=== PATIENT | male | born 1960 | race Caucasian/White ===

== ENCOUNTER 2020-10-12 13:45 | Inpatient (IN) | payer MEDICAID ==
--- NOTE | 2020-10-12 14:09 | ED Physician Documentation ---
PD HPI LOWER EXT INJURY - Stated complaint Stated Complaint: GLF,LT HIP,LEG PX - Chief complaint Chief Complaint: Trauma Ext - History obtained from History obtained from: Patient - History of Present Illness PD HPI LOW EXT INJURY LOCATION: Left, Hip Type of injury: Fall Where injury occurred: Home Timing - onset: Today Timing - duration: Minutes Timing - details: Abrupt onset, Still present Improved by: Rest, Immobilization Worsened by: Moving, Palpating Associated symptoms: No: Weakness, Numbness, Tingling, Swelling, Discolored Contributing factors: No: Anticoagulated Similar symptoms before: Has not had sx before Recently seen: Not recently seen - Additional information Additional information: Previously well 59-year-old male was in his kitchen today preparing food when he slipped on something on the floor his legs came out from underneath him and he landed on his left side. He heard a crack when he landed and he is not able to bear weight on his left leg with pain in the hip. He notes that his leg will fall off laterally if unsupported and he has maximal pain when he attempts to bear any weight or to move the leg around. His brother helped him out to the car and he was brought into the emergency department in a wheelchair. Review of Systems Constitutional: denies: Fever Eyes: denies: Decreased vision Ears: denies: Ear pain Nose: denies: Congestion Throat: denies: Sore throat Cardiac: denies: Chest pain / pressure, Palpitations Respiratory: denies: Dyspnea, Cough GI: denies: Abdominal Pain, Nausea, Vomiting, Constipation, Diarrhea : denies: Dysuria, Frequency Skin: denies: Rash Musculoskeletal: denies: Neck pain, Back pain, Extremity pain Neurologic: denies: Generalized weakness, Focal weakness, Numbness PD PAST MEDICAL HISTORY - Allergies Allergies/Adverse Reactions: Allergies Allergy/AdvReac Type Severity Reaction Status Date / Time No Known Drug Allergies Allergy Verified 10/12/20 13:48 PD ED PE NORMAL - Vitals Vital signs reviewed: Yes (hypertensive ) - General General: Alert and oriented X 3, No acute distress, Well developed/nourished - HEENT HEENT: PERRL, EOMI, Other (to the left scalp is an area of tenderness without crepitance or step off over the parietal/occipital area. ) - Neck Neck: Supple, no meningeal sign, No bony TTP - Cardiac Cardiac: RRR, No murmur - Respiratory Respiratory: No respiratory distress, Clear bilaterally - Abdomen Abdomen: Normal bowel sounds, Soft, Non tender, Non distended, No organomegaly - Back Back: No CVA TTP, No spinal TTP - Derm Derm: Normal color, Warm and dry, No rash - Extremities Extremities: No deformity, No edema, Other (There is tenderness to the pubic symphysis on the left and not to the lateral aspect of the trochanter. There is no shortening to the leg but there does appear to be external rotation. The foot will fall to the side if the leg is placed straight. ) - Neuro Neuro: Alert and oriented X 3, ear specialist 2-12 intact, No motor deficit, No sensory deficit, Normal speech Eye Opening: Spontaneous Motor: Obeys Commands Verbal: Oriented GCS Score: 15 - Psych Psych: Normal mood, Normal affect Results - Vitals Vitals: Vital Signs - 24 hr 10/12/20 13:48 Temperature 36.7 C Heart Rate 100 Respiratory 16 Rate Blood Pressure 137/89 H O2 Saturation 98 - Labs Labs: Laboratory Tests 10/12/20 10/12/20 10/12/20 15:05 15:05 15:15 WBC 14.5 H RBC 5.09 Hgb 16.0 Hct 46.6 MCV 91.6 MCH 31.4 H MCHC 34.3 RDW 13.3 Plt Count 192 MPV 11.1 Neut # (Auto) 12.4 H Lymph # (Auto) 1.0 L Rice # (Auto) 1.0 Eos # (Auto) 0.0 Baso # (Auto) 0.1 Absolute Nucleated RBC 0.00 Nucleated RBC % 0.0 Sodium 136 Potassium 3.8 Chloride 100 L Carbon Dioxide 23 Anion Gap 13.0 BUN 15 Creatinine 1.2 Estimated GFR (MDRD) 62 L Glucose 99 Calcium 8.8 Total Bilirubin 1.0 AST 23 ALT 16 Alkaline Phosphatase 58 Total Protein 7.6 Albumin 4.2 Globulin 3.4 Albumin/Globulin Ratio 1.2 Lipase 27 Nasal Adenovirus (PCR) NOT DETECTED Nasal B. parapertussis DNA (PCR) NOT DETECTED Nasal Coronavir 229E PCR NOT DETECTED Nasal Coronavir HKU1 PCR NOT DETECTED Nasal Coronavir NL63 PCR NOT DETECTED Nasal Coronavir OC43 PCR NOT DETECTED Nasal Enterovir/Rhinovir PCR NOT DETECTED Nasal Influenza B PCR NOT DETECTED Nasal Influenza A PCR NOT DETECTED Nasal Parainfluen 1 PCR NOT DETECTED Nasal Parainfluen 2 PCR NOT DETECTED Nasal Parainfluen 3 PCR NOT DETECTED Nasal Parainfluen 4 PCR NOT DETECTED Nasal RSV (PCR) NOT DETECTED Nasal B.pertussis DNA PCR NOT DETECTED Nasal C.pneumoniae (PCR) NOT DETECTED Ponce Human Metapneumo PCR NOT DETECTED Nasal M.pneumoniae (PCR) NOT DETECTED Nasal SARS-CoV-2 (PCR) NOT DETECTED - Rads (name of study) hip Radiology: Prelim report reviewed (Impression: Likely subcapital left femoral neck fracture, yet is not well seen. Please consider a dedicated CT for further evaluation.), EMP read indepedently, See rad report CT hip Radiology: Prelim report reviewed (Impression: Moderately displaced, impacted, comminuted subcapital left femoral neck fracture. No associated this location can be seen. No additional fractures.), EMP read indepedently, See rad report PD MEDICAL DECISION MAKING - ED course Complexity details: reviewed results, re-evaluated patient, considered differential, d/w patient ED course: 59 y/o male with a GLF and pain in the left hip is unable to bear weight after a fall. Plain films reveal what appears to be a femoral neck fracture and this is confirmed with CT scanning. Dr. Aguiar is consulted in the case and recommends admission to the hospitalist for surgery tomorrow. Departure - Departure Disposition: [facility] DC/Xfer Clinical Impression: Femoral neck fracture Qualifiers: Encounter type: initial encounter Fracture type: closed Laterality: left Qualified Code(s): S72.002A - Fracture of unspecified part of neck of left femur, initial encounter for closed fracture Condition: Stable Discharge Date/Time: 10/12/20 16:59
--- NOTE | 2020-10-12 14:31 | XRAY Report ---
PROCEDURE: Hip w/Pelvis 2-3V LT INDICATIONS: fall hip pain TECHNIQUE: AP pelvis with lateral view(s) of the bilateral hip(s). COMPARISON: None. FINDINGS: Bones: There is suspicion for left subcapital femoral neck fracture. No dislocations. Pelvic ring appears intact. No suspicious bony lesions. Soft tissues: The visualized bowel gas pattern is normal. No suspicious soft tissue calcifications. IMPRESSION: Likely subcapital left femoral neck fracture, yet this is not well seen. Please consider a dedicated CT for further evaluation. Reviewed by: Minh Rouse MD on 10/12/2020 1:30 PM [facility] Approved by: Minh Rouse MD on 10/12/2020 1:30 PM [facility] Station ID: [id number]
--- NOTE | 2020-10-12 15:32 | CT Report ---
PROCEDURE: LOWER EXTREMITY WO - LT INDICATIONS: femoral neck fracture TECHNIQUE: Noncontrast 3 mm axial sections acquired of the left hip, with coronal and sagittal reformats. COMPARISON: Correlation is made with the accompanying hip plain film, 10/12/2020 FINDINGS: Image quality: Excellent. Bones: There is a moderately displaced, comminuted, impacted fracture of the subcapital left femoral neck. This fracture is much better displayed on the current CT than on the prior plain film study. There is no associated dislocation. No fractures of the bones of the pelvis can be seen. No suspiciou s lytic or blastic lesions are seen. Age-appropriate degenerative changes are seen. Soft tissues: Associated mild soft tissue swelling can be seen surrounding the fracture. There is a moderately sized fat-containing left inguinal hernia seen. No bladder wall thickening is s een. No free air or significant free intraperitoneal fluid can be seen. No enlarged lymph nodes are s een. Diverticulosis can be seen, without esthela findings of active diverticulitis. IMPRESSION: Moderately displaced, impacted, comminuted subcapital left femoral neck fracture. No associated dislocation can be seen. No additional fractures. Incidental note is made of: Diverticulosis can be seen, without esthela findings of active diverticulitis. Fat-containing left inguinal hernia Reviewed by: Minh Rouse MD on 10/12/2020 2:31 PM [place] Approved by: Minh Rouse MD on 10/12/2020 2:31 PM [facility] Station ID: [id number]
[2020-10-12 15:35] LABS: BASOPHILS # (AUTO) 0.1 10^3/uL (0.0-0.1); BASOPHILS % (AUTO) 0.3 %; EOSINOPHILS % (AUTO) 0.1 %; LYMPHOCYTES % (AUTO) 6.6 %; MEAN CORPUSCULAR HEMOGLOBIN 31.4 pg (27.0-31.0); MEAN CORPUSCULAR HGB CONC 34.3 g/dL (32.0-36.0); MEAN CORPUSCULAR VOLUME 91.6 fL (80.0-94.0); MEAN PLATELET VOLUME 11.1 fL (7.4-11.4); NEUTROPHILS # (AUTO) 12.4 10^3/uL (1.5-6.6); NEUTROPHILS % (AUTO) 85.4 %; PLT - PLATELET COUNT 192 10^3/uL (130-450); RED BLOOD COUNT 5.09 10^6/uL (4.70-6.10); RED CELL DISTRIBUTION WIDTH 13.3 % (12.0-15.0); WHITE BLOOD COUNT 14.5 x10^3/uL (4.8-10.8)
[2020-10-12 15:49] LABS: ALBUMIN 4.2 g/dL (3.2-5.5); ALBUMIN/GLOBULIN RATIO 1.2 (1.0-2.2); CALCIUM 8.8 mg/dL (8.5-10.3); CREATININE 1.2 mg/dL (0.6-1.2); TOTAL PROTEIN 7.6 g/dL (6.7-8.2)
[2020-10-12] MEDS ORDERED: ONDANSETRON 4 MG/2 ML VIAL IVP PRN (15:50)
[2020-10-12] MEDS ORDERED: ONDANSETRON ODT 4 MG TABLET TL PRN (15:50)
[2020-10-12] MEDS ORDERED: HYDROmorphone 1 MG/ML CARPUJECT IVP STA (16:03)
[2020-10-12] MEDS ORDERED: ONDANSETRON 4 MG/2 ML VIAL IVP STA (16:03)
--- NOTE | 2020-10-12 16:12 | XRAY Report ---
PROCEDURE: Chest 1 View X-Ray INDICATIONS: Preop. Leukocytosis. TECHNIQUE: One view of the chest was acquired. COMPARISON: None FINDINGS: Surgical changes and devices: None. Lungs and pleura: No pleural effusions or pneumothorax. Lungs are clear. Mediastinum: Mediastinal contours appear normal. Heart size is normal. Bones and chest wall: No suspicious bony lesions. Overlying soft tissues appear unremarkable. IMPRESSION: No evidence acute pulmonary process. Reviewed by: Roel Napoles MD on 10/12/2020 4:10 PM PST Approved by: Roel Napoles MD on 10/12/2020 4:10 PM PST Station ID: [id number]
[2020-10-12 16:50] LABS: C. PNEUMONIAE- RESP PCR PANEL NOT DETECTED
[2020-10-12] MEDS ORDERED: ceFAZolin 2 GM in SODIUM CHLORIDE 0.9% 100ML 100 ML IV SCH (17:00)
--- NOTE | 2020-10-12 17:05 | CONSULTATION NOTE ---
DATE OF SERVICE: 10/05/2020 Physician: Trevor Aguiar MD REFERRING PHYSICIAN: Juan Li MD, of the Emergency Room Department. CHIEF COMPLAINT: "My left hip hurts." HISTORY OF PRESENT ILLNESS: Patient is a 59-year-old active male who apparently slipped on the kitchen floor this afternoon and fell onto the point of his left hip. Noted immediate pain and no significant deformity in the leg. Was unable to stand or weight bear due to pain. Was eventually taken by ambulance to the Emergency Room here at [facility], where clinical examinatio n and x-rays plus CT scan revealed a mildly angulated, minimally shortened, left subcapital hip fract ure. No other associated injuries noted. No nausea, vomiting or loss of consciousness. No prior hi p fractures. PHYSICAL EXAM: Patient's left leg was examined. He has some anterior groin tenderness on the left s maribel. Pain with hip rotation noted. The leg was minimally shortened today on inspection. Moves his toes and ankles satisfactory on command. Sensation appeared to be intact throughout. Good capillary filling noted in the digits. Review of x-rays and CT scan taken of the left hip shows a mildly angulated, minimally shortened, lef t subcapital hip fracture. ASSESSMENT: Closed, minimally displaced left subcapital hip fracture - in an otherwise very healthy and active male. PLAN: Treatment options were explained to the patient. He has opted for a closed reduction and mult iple cannulated screw fixation of his hip fracture. He is aware that there may go on to either delay ed or nonunion of his fracture or even an avascular necrosis of his femoral head due to the injury an d the often tenuous circulation to the hip fractures at this level. Other complications such as woun d infections, blood loss, nerve damage, etc., were explained to him. After answering all his questio ns, he wishes to proceed with the surgery as outlined. He does not want to have a hip hemiarthroplas ty performed if at all possible. Patient's leg was marked. Consent signed. We will tentatively ele n on proceeding tomorrow morning for a closed reduction and multiple cannulated screw fixation of his fracture. TD: 10/12/2020 16:53
--- NOTE | 2020-10-12 17:19 | HISTORY & PHYSICAL EXAMINATION ---
Chief Complaint - Chief Complaint Chief Complaint: Fall and left hip pain History of Present Illness - Admitted From Admitted From:: Home - History Obtained From Records Reviewed: Yes History obtained from: Patient, ER Physician, EMR - History of Present Illness HPI Comment/Other: This is a pleasant 59-year-old male with a past medical history significant for motor arthritis who presents today after falling at home and complaining of left hip pain. He states he was making Thanksgiving dinner when he attempted to put on some entertainment by sliding across the kitchen floor when he slipped and fell up in the air and on his left hip. He heard a pop and thought his hip was dislocated. He complains of pain in the left groin. No numbness in his lower extremities. He states he is relatively healthy to his knowledge. He has a history of rheumatoid arthritis but does not take any medications for it. He has not seen a physician in many years. Reports no prior history of diabetes, hypertension, heart disease, arrhythmias. He states he is normally quite active and is able to hike and climb a flight of stairs without chest pain. He reports a family history of atrial fibrillation and a murmur in his father. He did smoke a pack for 40 years but quit over 5 years ago. He will have occasional alcoholic beverage. Will smoke occasional marijuana. He has never had surgery before. He denies any fevers, chills, chest pain, dyspnea, cough, dysuria, urgency. In the emergency department, he underwent imaging of the left hip which was concerning for a left femoral neck fracture. He was evaluated by orthopedic surgery and plan is for OR tomorrow with orthopedics. Given the above findings, medicine was consulted for admission. I did discuss goals of care with the patient and he would like to be a full code History - Past Medical History Cardiovascular: reports: None Respiratory: reports: None Neuro: reports: None Musculoskeletal: reports: Rheumatoid arthritis - Family & Social History Family History Comment/Other: He reports his father has a history of heart murmur which may be due to an abnormal valve although he is not sure what exactly. His mother had atrial fibrillation. Living arrangement: At home Social History Notes: He did smoke half pack a day for 40 years but quit over 5 years ago. He will have an occasional alcoholic beverage. He will use marijuana every once in a while. He states his last use was a week ago and he will occasionally use it for period of time and then use it daily for a period of time. Meds/Allgy - Allergies Allergies/Adverse Reactions: Allergies Allergy/AdvReac Type Severity Reaction Status Date / Time No Known Drug Allergies Allergy Verified 10/12/20 13:48 Review of Systems - Constitutional Constitutional: denies: Fever, Chills - Eyes Eyes: denies: Blurred vision - Cardiovascular Cariovascular: denies: Chest pain, Edema, Lightheadedness, Syncope, Exertional dyspnea, Decr. exercise tolerance - Respiratory Respiratory: denies: Cough, SOB with exertion - Gastrointestinal Gastrointestinal: denies: Abdominal pain, Nausea, Vomiting - Genitourinary Genitourinary: denies: Dysuria, Frequency, Urgency, Hematuria - Musculoskeletal Musculoskeletal: reports: Limited range of motion, Joint pain. denies: Back pain, Muscle weakness - Neurological Neurological: denies: General weakness, Focal weakness, Headache, Dizziness, Numbness - Hematologic/Lymphatic Hematologic/Lymphatic: denies: Anemia, Bleeding tendencies - All Other Systems All Other Systems: reports: Reviewed and negative Prior Level of Functionality: He is independent with his ADLs. Exam - Vital Signs Reviewed Vital Signs: Yes Vital Signs: Vital Signs x48h Temp Pulse Resp BP Pulse Ox 10/12/20 17:01 95 18 134/79 H 99 10/12/20 16:12 97 14 138/89 H 100 10/12/20 13:48 36.7 C 100 16 137/89 H 98 - Physical Exam General Appearance: positive: No acute distress, Alert Eyes Bilateral: positive: Normal inspection, Conjunctivae nml ENT: positive: ENT inspection nml Neck: positive: Nml inspection Respiratory: positive: No respiratory distress. negative: Wheezes, Rales Cardiovascular: positive: Regular rate & rhythm, No murmur. negative: Tachycardia, Bradycardia, Systolic murmur Abdomen: positive: Non-tender, No distention. negative: Tenderness Skin: positive: Warm, Dry Extremities: positive: No pedal edema, Other (His left lower extremity is internally rotated. There is no edema or erythema. No tenderness to palpation. There is decreased range of motion due to pain. +2 dorsalis pedis pulse.) Neurologic/Psychiatric: positive: Oriented x3. negative: Disoriented to person, Disoriented to place, Disoriented to time Conclusion/Plan - Problem List (1) Fracture of femoral neck, left Conclusion/Plan: This is secondary to a mechanical fall at home. Given the nature of the fall, this does appear to be a fragility fracture. Imaging revealed a left femoral ne ck fracture. Pain control with morphine IV as needed as well as oxycodone and Tylenol as needed. N.p.o. at midnight for surgical intervention with orthopedics tomorrow. He will need PT and OT consult postoperatively. Given the concern for fragility fracture, he may benefit from Fosamax on discharge 2 weeks after the fracture. Qualifiers: Encounter type: initial encounter Fracture type: closed Qualified Code(s): S72.002A - Fracture of unspecified part of neck of left femur, initial encounter for closed fracture (2) Pre-op examination Conclusion/Plan: He is able to function greater than 4 METS and he has no history of heart disease, arrhythmias, diabetes, stroke. There is no obvious murmur on exam. This point in time, he appears medically optimized for surgical intervention. We will obtain a preop EKG and unless this is suggestive of ischemia, no further work-up is necessary. His revised cardiac risk index is 0 points which puts him at class I risk. (3) Leukocytosis Conclusion/Plan: Suspect this is likely reactive. There is no evidence of infection at this time. We will trend his white count. No indication for antibiotics. (4) Rheumatoid arthritis Conclusion/Plan: Stable. He is not on any medications at home. - Lab Results Lab results reviewed: Yes Fish Bones: 10/12/20 15:05 10/12/20 15:05 - Diagnostic Imaging Results Diagnostic Imaging Results: positive: Final report reviewed - EKG Results EKG Interpreted Independently: Yes EKG Findings: EKG shows a sinus rhythm with no ST segment changes. Core Measures - Anticipated LOS I expect patient to be DC'd or transferred within 96 hours.: Yes - Issues Hospital Issues and Management Plan: 59-year-old male who fell at home and has a left femoral neck fracture. He will be admitted for surgical intervention with orthopedics. - DVT/VTE - Prophylaxis VTE/DVT Device ordered at admit?: Yes VTE/DVT Prophylaxis med ordered at admit?: Yes
[2020-10-12] MEDS ORDERED: ceFAZolin 1 GM VIAL ONE (17:46)
[2020-10-12] MEDS: SODIUM CHLORIDE FLUSH 0.9% 10 ML SYRINGE IVP SCH (17:52)
[2020-10-12] MEDS: ACETAMINOPHEN 325 MG TABLET PO PRN (20:03)
[2020-10-12] MEDS: oxyCODONE 5 MG TABLET PO PRN (20:03)
[2020-10-12] MEDS: SODIUM CHLORIDE FLUSH 0.9% 10 ML SYRINGE IVP PRN (22:31)
[2020-10-12] MEDS: MORPHINE 2 MG/ML CARPUJECT IVP PRN (22:31)
[2020-10-13] MEDS: MORPHINE 2 MG/ML CARPUJECT IVP PRN ×2 (01:43→08:39)
[2020-10-13] MEDS: SODIUM CHLORIDE FLUSH 0.9% 10 ML SYRINGE IVP SCH ×3 (01:44→16:31)
[2020-10-13 05:59] LABS: BASOPHILS % (AUTO) 0.4 %; EOSINOPHILS % (AUTO) 0.3 %; HGB - HEMOGLOBIN 15.8 g/dL (14.0-18.0); LYMPHOCYTES # (AUTO) 1.4 10^3/uL (1.5-3.5); LYMPHOCYTES % (AUTO) 12.9 %; MEAN CORPUSCULAR HEMOGLOBIN 31.7 pg (27.0-31.0); MEAN CORPUSCULAR HGB CONC 34.6 g/dL (32.0-36.0); MEAN CORPUSCULAR VOLUME 91.4 fL (80.0-94.0); MEAN PLATELET VOLUME 11.2 fL (7.4-11.4); MONOCYTES # (AUTO) 1.4 10^3/uL (0.0-1.0); MONOCYTES % (AUTO) 12.8 %; NEUTROPHILS # (AUTO) 7.9 10^3/uL (1.5-6.6); NEUTROPHILS % (AUTO) 73.2 %; PLT - PLATELET COUNT 180 10^3/uL (130-450); RED BLOOD COUNT 4.99 10^6/uL (4.70-6.10); RED CELL DISTRIBUTION WIDTH 13.5 % (12.0-15.0); WHITE BLOOD COUNT 10.7 x10^3/uL (4.8-10.8)
[2020-10-13 06:07] LABS: CALCIUM 8.7 mg/dL (8.5-10.3); MAGNESIUM 2.1 mg/dL (1.7-2.8); PHOSPHORUS 2.9 mg/dL (2.5-4.6)
[2020-10-13] MEDS ORDERED: ceFAZolin 2 GM in SODIUM CHLORIDE 0.9% 100ML 100 ML IV SCH (07:00)
--- NOTE | 2020-10-13 07:25 | PROVIDER PROGRESS NOTE ---
Subjective - Prog Note Date Prog Note Date: 10/13/20 - Subjective Subjective: Reports doing well postoperatively. Denies any pain at this time. Reports no chest pain, dyspnea. He is motivated to work with physical therapy and to go home as soon as possible. Current Medications - Current Medications Current Medications: Active Medications Acetaminophen (Tylenol) 650 mg PO Q4HR PRN PRN Reason: Pain 1 to 4 Last Admin: 10/12/20 20:03 Dose: 650 mg Documented by: Acetaminophen (Tylenol) 650 - 975 mg PO Q4HR PRN PRN Reason: PAIN Aspirin (Doron) 325 mg PO BIDWM [facility] Docusate Sodium (Colace 100mg Capsule) 100 mg PO BID PRN PRN Reason: Constipation Enoxaparin Sodium (Lovenox) 40 mg SUBQ DAILY [facility] Last Admin: 10/13/20 13:15 Dose: 40 mg Documented by: Cefazolin Sodium 2 gm/ Sodium (Chloride) 100 mls @ 200 mls/hr IV Q8H [facility] Stop: 10/14/20 03:29 Sodium Chloride (Normal Saline 0.9%) 1,000 mls @ 100 mls/hr IV .Q10H [facility] Last Admin: 10/13/20 13:25 Dose: 100 mls/hr Documented by: Morphine Sulfate (Morphine (Carpuject)) 2 mg IVP Q2HR PRN PRN Reason: Pain 8 to 10 Last Admin: 10/13/20 08:39 Dose: 2 mg Documented by: Ondansetron HCl (Zofran Inj) 4 mg IVP Q6HR PRN PRN Reason: Nausea / Vomiting Ondansetron HCl (Zofran Odt) 4 mg TL Q6HR PRN PRN Reason: Nausea / Vomiting Oxycodone HCl (Roxicodone) 5 mg PO Q4HR PRN PRN Reason: Pain 5 to 7 Last Admin: 10/13/20 13:14 Dose: 5 mg Documented by: Senna (Senokot) 17.2 mg PO Q12H PRN PRN Reason: Constipation Sodium Chloride (Normal Saline Flush 0.9%) 10 ml IVP PRN PRN PRN Reason: NEEDED PER PROVIDER ORDERS Last Admin: 10/12/20 22:31 Dose: 10 ml Documented by: Sodium Chloride (Normal Saline Flush 0.9%) 10 ml IVP 0100,0900,1700 NICOLE Last Admin: 10/13/20 13:27 Dose: 10 ml Documented by: No Known Home Medications 10/13/20 Objective - Vital Signs/Intake & Output Reviewed Vital Signs: Yes Vital Signs: Vital Signs x48h Temp Pulse Resp BP Pulse Ox 10/13/20 05:00 37.5 C 72 20 115/87 H 95 10/13/20 00:20 37.3 C 79 18 125/73 94 Intake & Output: Intake & Output 10/10/20 10/11/20 10/12/20 10/13/20 23:59 23:59 23:59 23:59 Intake Total 270 Output Total 1050 475 Balance -780 -475 - Objective General Appearance: positive: No acute distress, Alert Eyes Bilateral: positive: Normal inspection, Conjunctivae nml ENT: positive: ENT inspection nml Neck: positive: Nml inspection Respiratory: positive: No respiratory distress. negative: Wheezes, Rales Cardiovascular: positive: Regular rate & rhythm, No murmur. negative: Tachycardia, Bradycardia, Systolic murmur Abdomen: positive: Non-tender, No distention. negative: Tenderness, Guarding, Rebound Skin: positive: Warm, Dry Extremities: positive: No pedal edema, Other (Dressing is in place over the left hip. Dorsalis pedis pulses intact.) Neurologic/Psychiatric: positive: Oriented x3, Other (He is able to move his toes and left leg.). negative: Disoriented to person, Disoriented to place - Lab Results Fish Bones: 10/13/20 05:15 10/13/20 05:15 Other Labs: Lab Results x24hrs 10/13/20 10/13/20 10/12/20 Range/Units 05:15 05:15 15:15 WBC 10.7 (4.8-10.8) x10^3/uL RBC 4.99 (4.70-6.10) 10^6/uL Hgb 15.8 (14.0-18.0) g/dL Hct 45.6 (42.0-52.0) % MCV 91.4 (80.0-94.0) fL MCH 31.7 H (27.0-31.0) pg MCHC 34.6 (32.0-36.0) g/dL RDW 13.5 (12.0-15.0) % Plt Count 180 (130-450) 10^3/uL MPV 11.2 (7.4-11.4) fL Neut # (Auto) 7.9 H (1.5-6.6) 10^3/uL Lymph # (Auto) 1.4 L (1.5-3.5) 10^3/uL [place] # (Auto) 1.4 H (0.0-1.0) 10^3/uL Eos # (Auto) 0.0 (0.0-0.7) 10^3/uL Baso # (Auto) 0.0 (0.0-0.1) 10^3/uL Absolute Nucleated RBC 0.00 x10^3/uL Nucleated RBC % 0.0 /100WBC Sodium 137 (135-145) mmol/L Potassium 3.6 (3.5-5.0) mmol/L Chloride 103 (101-111) mmol/L Carbon Dioxide 23 (21-32) mmol/L Anion Gap 11.0 (6-13) BUN 13 (6-20) mg/dL Creatinine 1.0 (0.6-1.2) mg/dL Estimated GFR (MDRD) 76 L (>89) Glucose 106 H (70-100) mg/dL Calcium 8.7 (8.5-10.3) mg/dL Phosphorus 2.9 (2.5-4.6) mg/dL Magnesium 2.1 (1.7-2.8) mg/dL Total Bilirubin (0.2-1.0) mg/dL AST (10-42) IU/L ALT (10-60) IU/L Alkaline Phosphatase (42-121) IU/L Total Protein (6.7-8.2) g/dL Albumin (3.2-5.5) g/dL Globulin (2.1-4.2) g/dL Albumin/Globulin Ratio (1.0-2.2) Lipase (22-51) U/L Nasal Adenovirus (PCR) NOT DETECTED Nasal B. parapertussis DNA (PCR) NOT DETECTED Nasal Coronavir 229E PCR NOT DETECTED Nasal Coronavir HKU1 PCR NOT DETECTED Nasal Coronavir NL63 PCR NOT DETECTED Nasal Coronavir OC43 PCR NOT DETECTED Nasal Enterovir/Rhinovir PCR NOT DETECTED Nasal Influenza B PCR NOT DETECTED Nasal Influenza A PCR NOT DETECTED Nasal Parainfluen 1 PCR NOT DETECTED Nasal Parainfluen 2 PCR NOT DETECTED Nasal Parainfluen 3 PCR NOT DETECTED Nasal Parainfluen 4 PCR NOT DETECTED Nasal RSV (PCR) NOT DETECTED Nasal B.pertussis DNA PCR NOT DETECTED Nasal C.pneumoniae (PCR) NOT DETECTED [place] Human Metapneumo PCR NOT DETECTED Nasal M.pneumoniae (PCR) NOT DETECTED Nasal SARS-CoV-2 (PCR) NOT DETECTED 10/12/20 10/12/20 Range/Units 15:05 15:05 WBC 14.5 H (4.8-10.8) x10^3/uL RBC 5.09 (4.70-6.10) 10^6/uL Hgb 16.0 (14.0-18.0) g/dL Hct 46.6 (42.0-52.0) % MCV 91.6 (80.0-94.0) fL MCH 31.4 H (27.0-31.0) pg MCHC 34.3 (32.0-36.0) g/dL RDW 13.3 (12.0-15.0) % Plt Count 192 (130-450) 10^3/uL MPV 11.1 (7.4-11.4) fL Neut # (Auto) 12.4 H (1.5-6.6) 10^3/uL Lymph # (Auto) 1.0 L (1.5-3.5) 10^3/uL [place] # (Auto) 1.0 (0.0-1.0) 10^3/uL Eos # (Auto) 0.0 (0.0-0.7) 10^3/uL Baso # (Auto) 0.1 (0.0-0.1) 10^3/uL Absolute Nucleated RBC 0.00 x10^3/uL Nucleated RBC % 0.0 /100WBC Sodium 136 (135-145) mmol/L Potassium 3.8 (3.5-5.0) mmol/L Chloride 100 L (101-111) mmol/L Carbon Dioxide 23 (21-32) mmol/L Anion Gap 13.0 (6-13) BUN 15 (6-20) mg/dL Creatinine 1.2 (0.6-1.2) mg/dL Estimated GFR (MDRD) 62 L (>89) Glucose 99 (70-100) mg/dL Calcium 8.8 (8.5-10.3) mg/dL Phosphorus (2.5-4.6) mg/dL Magnesium (1.7-2.8) mg/dL Total Bilirubin 1.0 (0.2-1.0) mg/dL AST 23 (10-42) IU/L ALT 16 (10-60) IU/L Alkaline Phosphatase 58 (42-121) IU/L Total Protein 7.6 (6.7-8.2) g/dL Albumin 4.2 (3.2-5.5) g/dL Globulin 3.4 (2.1-4.2) g/dL Albumin/Globulin Ratio 1.2 (1.0-2.2) Lipase 27 (22-51) U/L Nasal Adenovirus (PCR) Nasal B. parapertussis DNA (PCR) Nasal Coronavir 229E PCR Nasal Coronavir HKU1 PCR Nasal Coronavir NL63 PCR Nasal Coronavir OC43 PCR Nasal Enterovir/Rhinovir PCR Nasal Influenza B PCR Nasal Influenza A PCR Nasal Parainfluen 1 PCR Nasal Parainfluen 2 PCR Nasal Parainfluen 3 PCR Nasal Parainfluen 4 PCR Nasal RSV (PCR) Nasal B.pertussis DNA PCR Nasal C.pneumoniae (PCR) [place] Human Metapneumo PCR Nasal M.pneumoniae (PCR) Nasal SARS-CoV-2 (PCR) - Diagnostic Imaging Diagnostic Imaging Results: positive: Final report reviewed ABX Reporting Has patient been on IV antibiotics over the past 48 hours?: No Assessment/Plan - Problem List (1) Fracture of femoral neck, left Impression: He is status post close reduction and screw fixation of left hip. Today is postop day 0. His pain is well controlled at this time but he did have block. We will continue with IV morphine and oxycodone as needed. We will start Toradol IV and ibuprofen as needed. We will use aspirin 325 mg twice daily for DVT prophylaxis. PT and OT consult. Given this is considered a fragility fracture, he will benefit from alendronate on discharge and outpatient DEXA scan. Qualifiers: Encounter type: initial encounter Fracture type: closed Qualified Code (s): S72.002A - Fracture of unspecified part of neck of left femur, initial encounter for closed fracture (2) Rheumatoid arthritis Impression: Stable. He is not on any home medications.
--- NOTE | 2020-10-13 08:09 | ANESTHESIA ---
Pre-Anesthesia VS, & Labs - Diagnosis L hip fx - Procedure L hip nailing Vital Signs: Temp Pulse Resp BP Pulse Ox 36.9 C 83 18 114/91 H 94 10/13/20 08:03 10/13/20 08:03 10/13/20 08:03 10/13/20 08:03 10/13/20 08:03 Height: 6 ft Weight (kg): 74 kg Body Mass Index: 22.1 BMI Classification: Healthy weight - NPO >8 hours - Lab Results Current Lab Results: Laboratory Tests 10/13/20 05:15: Sodium 137, Potassium 3.6, Chloride 103, Carbon Dioxide 23, Anion Gap 11.0, BUN 13, Creatinine 1.0, Estimated GFR (MDRD) 76 L, Glucose 106 H , Calcium 8.7, Phosphorus 2.9, Magnesium 2.1 10/13/20 05:15: WBC 10.7, RBC 4.99, Hgb 15.8, Hct 45.6, MCV 91.4, MCH 31.7 H, MCHC 34.6, RDW 13.5, Plt Count 180, MPV 11.2, Neut # (Auto) 7.9 H, Lymph # (Auto) 1.4 L, [place] # (Auto) 1.4 H, Eos # (Auto) 0.0, Baso # (Auto) 0.0, Absolute Nucleated RBC 0.00, Nucleated RBC % 0.0 10/12/20 15:05: Sodium 136, Potassium 3.8, Chloride 100 L, Carbon Dioxide 23, Anion Gap 13.0, BUN 15, Creatinine 1.2, Estimated GFR (MDRD) 62 L, Glucose 99, Calcium 8.8, Total Bilirubin 1.0, AST 23, ALT 16, Alkaline Phosphatase 58, Total Protein 7.6, Albumin 4.2, Globulin 3.4, Albumin/Globulin Ratio 1.2, Lipase 27 10/12/20 15:05: WBC 14.5 H, RBC 5.09, Hgb 16.0, Hct 46.6, MCV 91.6, MCH 31.4 H, MCHC 34.3, RDW 13.3, Plt Count 192, MPV 11.1, Neut # (Auto) 12.4 H, Lymph # (Auto) 1.0 L, [place] # (Auto) 1.0, Eos # (Auto) 0.0, Baso # (Auto) 0.1, Absolute Nucleated RBC 0.00, Nucleated RBC % 0.0 Lab results reviewed: Yes Fish Bones: 10/13/20 05:15 10/13/20 05:15 Home Medications and Allergies Active Medications Acetaminophen (Tylenol) 650 mg PO Q4HR PRN PRN Reason: Pain 1 to 4 Last Admin: 10/12/20 20:03 Dose: 650 mg Documented by: Enoxaparin Sodium (Lovenox) 40 mg SUBQ DAILY [facility] Cefazolin Sodium 2 gm/ Sodium (Chloride) 100 mls @ 200 mls/hr IV ONCE [facility]ICOLE Stop: 10/13/20 12:00 Morphine Sulfate (Morphine (Carpuject)) 2 mg IVP Q2HR PRN PRN Reason: Pain 8 to 10 Last Admin: 10/13/20 01:43 Dose: 2 mg Documented by: Ondansetron HCl (Zofran Inj) 4 mg IVP Q6HR PRN PRN Reason: Nausea / Vomiting Ondansetron HCl (Zofran Odt) 4 mg TL Q6HR PRN PRN Reason: Nausea / Vomiting Oxycodone HCl (Roxicodone) 5 mg PO Q4HR PRN PRN Reason: Pain 5 to 7 Last Admin: 10/12/20 20:03 Dose: 5 mg Documented by: Sodium Chloride (Normal Saline Flush 0.9%) 10 ml IVP PRN PRN PRN Reason: NEEDED PER PROVIDER ORDERS Last Admin: 10/12/20 22:31 Dose: 10 ml Documented by: Sodium Chloride (Normal Saline Flush 0.9%) 10 ml IVP 0100,0900,1700 [facility] Last Admin: 10/13/20 01:44 Dose: 10 ml Documented by: Allergies/Adverse Reactions: Allergies Allergy/AdvReac Type Severity Reaction Status Date / Time No Known Drug Allergies Allergy Verified 10/12/20 13:48 Anes History & Medical History - Anesthetic History Anesthesia Complications: reports: No previous complications Family history of Anesthesia Complications: Denies Family history of Malignant Hyperthermia: Denies - Medical History Cardiovascular: reports: None Pulmonary: reports: None Neuro: reports: None Musculoskeletal: reports: Rheumatoid arthritis Smoking Status: Former smoker Psychosocial: reports: No issues indicated, Cannabis (occasional) History of Cancer?: No - Surgical History Orthopedic: Other (B wrist fx) Exam General: Alert, Oriented x3, Cooperative Dental: Poor dentition Mouth Openin Fingerbreadth Neck Mobility: Normal Mallampati classification: II Thyromental Distance: greater than 6 cm Respiratory: Lungs clear, Normal breath sounds, No respiratory distress Cardiovascular: Regular rate Neurological: Normal speech Mental/Cognitive Status: Alert/Oriented X3, Normal for patient Cognitive Status: Within normal limits Plan Anesthesia Type: General, Fascia Iliaca Block Consent for Procedure(s) Verified and Reviewed: Yes Code Status: Attempt Resuscitation ASA classification: 2-Mild systemic disease Is this case an emergency?: No
--- NOTE | 2020-10-13 08:10 | ANESTHESIA ---
Pre-Anesthesia VS, & Labs - Diagnosis fx L hip Vital Signs: Temp Pulse Resp BP Pulse Ox 36.9 C 83 18 114/91 H 94 10/13/20 08:03 10/13/20 08:03 10/13/20 08:03 10/13/20 08:03 10/13/20 08:03 Height: 6 ft Weight (kg): 74 kg Body Mass Index: 22.1 BMI Classification: Healthy weight - Lab Results Current Lab Results: Laboratory Tests 10/13/20 05:15: Sodium 137, Potassium 3.6, Chloride 103, Carbon Dioxide 23, Anion Gap 11.0, BUN 13, Creatinine 1.0, Estimated GFR (MDRD) 76 L, Glucose 106 H , Calcium 8.7, Phosphorus 2.9, Magnesium 2.1 10/13/20 05:15: WBC 10.7, RBC 4.99, Hgb 15.8, Hct 45.6, MCV 91.4, MCH 31.7 H, MCHC 34.6, RDW 13.5, Plt Count 180, MPV 11.2, Neut # (Auto) 7.9 H, Lymph # (Auto) 1.4 L, [place] # (Auto) 1.4 H, Eos # (Auto) 0.0, Baso # (Auto) 0.0, Absolute Nucleated RBC 0.00, Nucleated RBC % 0.0 10/12/20 15:05: Sodium 136, Potassium 3.8, Chloride 100 L, Carbon Dioxide 23, Anion Gap 13.0, BUN 15, Creatinine 1.2, Estimated GFR (MDRD) 62 L, Glucose 99, Calcium 8.8, Total Bilirubin 1.0, AST 23, ALT 16, Alkaline Phosphatase 58, Total Protein 7.6, Albumin 4.2, Globulin 3.4, Albumin/Globulin Ratio 1.2, Lipase 27 10/12/20 15:05: WBC 14.5 H, RBC 5.09, Hgb 16.0, Hct 46.6, MCV 91.6, MCH 31.4 H, MCHC 34.3, RDW 13.3, Plt Count 192, MPV 11.1, Neut # (Auto) 12.4 H, Lymph # (Auto) 1.0 L, [place] # (Auto) 1.0, Eos # (Auto) 0.0, Baso # (Auto) 0.1, Absolute Nucleated RBC 0.00, Nucleated RBC % 0.0 Fish Bones: 10/13/20 05:15 10/13/20 05:15 Home Medications and Allergies Active Medications Acetaminophen (Tylenol) 650 mg PO Q4HR PRN PRN Reason: Pain 1 to 4 Last Admin: 10/12/20 20:03 Dose: 650 mg Documented by: Enoxaparin Sodium (Lovenox) 40 mg SUBQ DAILY [facility] Cefazolin Sodium 2 gm/ Sodium (Chloride) 100 mls @ 200 mls/hr IV ONCE [facility] Stop: 10/13/20 12:00 Morphine Sulfate (Morphine (Carpuject)) 2 mg IVP Q2HR PRN PRN Reason: Pain 8 to 10 Last Admin: 10/13/20 01:43 Dose: 2 mg Documented by: Ondansetron HCl (Zofran Inj) 4 mg IVP Q6HR PRN PRN Reason: Nausea / Vomiting Ondansetron HCl (Zofran Odt) 4 mg TL Q6HR PRN PRN Reason: Nausea / Vomiting Oxycodone HCl (Roxicodone) 5 mg PO Q4HR PRN PRN Reason: Pain 5 to 7 Last Admin: 10/12/20 20:03 Dose: 5 mg Documented by: Sodium Chloride (Normal Saline Flush 0.9%) 10 ml IVP PRN PRN PRN Reason: NEEDED PER PROVIDER ORDERS Last Admin: 10/12/20 22:31 Dose: 10 ml Documented by: Sodium Chloride (Normal Saline Flush 0.9%) 10 ml IVP 0100,0900,1700 [facility] Last Admin: 10/13/20 01:44 Dose: 10 ml Documented by: Allergies/Adverse Reactions: Allergies Allergy/AdvReac Type Severity Reaction Status Date / Time No Known Drug Allergies Allergy Verified 10/12/20 13:48 Anes History & Medical History - Medical History Cardiovascular: reports: None Pulmonary: reports: None Neuro: reports: None Musculoskeletal: reports: Rheumatoid arthritis Smoking Status: Former smoker
[2020-10-13] MEDS ORDERED: ROPIVACAINE 0.2% PF 20ML VIAL ONE (08:22)
[2020-10-13] MEDS ORDERED: ENOXAPARIN 40 MG/0.4 ML SYRINGE SUBQ SCH (09:00)
[2020-10-13] MEDS ORDERED: BUPIVACAINE 0.25% PF 30 ML VIAL ONE (10:23)
--- NOTE | 2020-10-13 10:33 | PHARMACY PROGRESS NOTE ---
- Best Possible Medication History Admit Date and Time: 10/12/20 1550 Processed by: Pharmacy Medication History completed: Yes Patient Interview: Completed As the person ultimately responsible for medication therapy, providers are able to order a medication from an existing home medication list in [facility] via the "Reconcile Routine" prior to Confirmation of that medication by senior technical support engineer. Such practice is discouraged except when the physician, in their clinical bhargav gment, deems that a medical need exists for a medication without regard to previous use.
[2020-10-13] MEDS ORDERED: BUPIVACAINE 0.25% PF 30 ML VIAL SUBQ ONE ×2 (10:35)
[2020-10-13] MEDS ORDERED: fentaNYL 100 MCG/2 ML VIAL IVP PRN (11:19)
[2020-10-13] MEDS ORDERED: HYDROmorphone 0.5 MG/0.5 ML SYRINGE IVP PRN (11:19)
[2020-10-13] MEDS ORDERED: NALOXONE 0.4 MG/ML VIAL IVP PRN (11:19)
[2020-10-13] MEDS ORDERED: MORPHINE 2 MG/ML CARPUJECT IVP PRN (11:19)
[2020-10-13] MEDS ORDERED: ONDANSETRON 4 MG/2 ML VIAL IVP PRN ×2 (11:19→12:09)
[2020-10-13] MEDS ORDERED: ATROPINE ABBOJECT 1 MG/10 ML SYRINGE IVP PRN (11:19)
[2020-10-13] MEDS ORDERED: METOCLOPRAMIDE 10 MG/2 ML VIAL IVP PRN (11:19)
[2020-10-13] MEDS ORDERED: ePHEDrine 50 MG/ML VIAL IVP PRN (11:19)
[2020-10-13] MEDS ORDERED: LACTATED RINGERS 1,000 ML IV SCH (12:00)
[2020-10-13] MEDS ORDERED: oxyCODONE 5 MG TABLET PO PRN (12:09)
[2020-10-13] MEDS ORDERED: ACETAMINOPHEN 325 MG TABLET PO PRN (12:09)
[2020-10-13] MEDS ORDERED: DOCUSATE SODIUM 100 MG CAPSULE PO PRN (12:09)
[2020-10-13] MEDS ORDERED: SENNA 8.6 MG TABLET PO PRN (12:09)
[2020-10-13] MEDS ORDERED: LACTATED RINGERS 1,000 ML IV ONE (12:09)
[2020-10-13] MEDS ORDERED: SODIUM CHLORIDE FLUSH 0.9% 10 ML SYRINGE IVP PRN (12:09)
--- NOTE | 2020-10-13 12:17 | OPERATIVE REPORT ---
Operative Report - General Admit Date: 10/12/20 Procedure Date: 10/13/20 Planned Procedure: Closed reduction and multiple cannulated screw fixation of left hip fracture Pre-Op Diagnosis: Mildly angulated left subcapital hip fracture Procedure Performed: Closed reduction and multiple cannulated screw fixation of left hip fracture Post Op Diagnosis: Same - Procedure Note Primary Surgeon: Mikayla Aguiar MD Anesthesia Provider: Garett Cheema CRNA Anesthesia Technique: General ET tube IV Fluids (mL): 700 Estimated Blood Loss (mL): 150 Complications: None
--- NOTE | 2020-10-13 12:22 | ANESTHESIA POST OP EVALUATION ---
Anesthesia Post Eval - Post Anesthesia Eval Vitals: Last Vital Signs Temp 36.5 C 10/13/20 12:13 Pulse 65 10/13/20 12:13 Resp 14 10/13/20 12:13 BP 116/68 10/13/20 12:13 Pulse Ox 100 10/13/20 12:13 CV Function Including HR & BP: positive: Stable Pain Control: positive: Satisfactory (none) Nausea & Vomiting: positive: Negative Mental Status: positive: Baseline Respiratory Status: Airway Patent Hydration Status: Satisfactory Anesthesia Complications: positive: None
--- NOTE | 2020-10-13 12:23 | XRAY Report ---
PROCEDURE: OR C-Arm Procedure INDICATIONS: left hip fx TECHNIQUE: 2 intraoperative fluoroscopic images of left hip were obtained. COMPARISON: CT and radiograph of left hip dated 10/12/2020. FINDINGS: Intraoperative fluoroscopic images of left hip shows a fixation screw placement in left femoral neck through the femoral neck fracture site. IMPRESSION: Fluoroscopy guidance was provided intraoperatively for internal fixation of left femoral neck. Reviewed by: Carlton Cuellar MD on 10/13/2020 12:22 PM PST Approved by: Carlton Cuellar MD on 10/13/2020 12:22 PM PST Station ID: [id number]
[2020-10-13] MEDS ORDERED: SODIUM CHLORIDE 0.9% 1,000 ML IV SCH (13:00)
[2020-10-13] MEDS: oxyCODONE 5 MG TABLET PO PRN (13:14)
--- NOTE | 2020-10-13 14:51 | OPERATIVE REPORT ---
DATE OF SERVICE: 10/13/2020 Physician: Trevor Aguiar MD PREOPERATIVE DIAGNOSIS: Closed mildly angulated left subcapital hip fracture. POSTOPERATIVE DIAGNOSIS: Closed mildly angulated left subcapital hip fracture. PROCEDURE PERFORMED: Closed reduction and multiple cannulated screw fixation of left hip fracture. SURGEON: Trevor Aguiar MD ANESTHESIA: General. DESCRIPTION OF PROCEDURE: The patient was taken to the operating room on the morning of 10/13/2020, where he was placed under a general anesthetic without any complications. A peripheral nerve block w as also performed to allow for postoperative pain control. We then placed the patient supine on the fracture table. The right leg was flexed at the hip and widely abducted and held with a well-leg hol reza. The fractured left extremity was then placed in axial traction with the leg internally rotated about 20 degrees. It was also mildly manipulated and adducted about 15 degrees as well to allow for a better reduction of our fracture. Fluoroscopic views in AP and lateral projections showed a nice re duction of the fracture and the fracture to be out to length. We then prepped and draped the lateral aspect of the hip in the usual fashion for our procedure. Through a lateral skin incision at the proximal thigh, we dissected down to the cortical bone of the proximal femur. This is where we proceeded to place our first threaded-tip guidepin in oblique fashi on across the fracture and went through the femoral neck and into the femoral head within a few mirian meters of subchondral bone. Satisfied with the position of our first pin, we then proceeded to use o ur pin guide to place 2 more threaded-tip guidewire pins to cross the fracture. One was posterior-sup erior to our original pin and the other was anterior and slightly more inferior than our first origin al pin. Fluoroscopic views showed maintenance of the fracture reduction and satisfactory placement o f all our pins. Direct measuring guide was used to determine the cannulated screws that would be use d. We determined two 110 mm length and one 115 mm length, 7.0 mm cannulated screws with short thread s would be utilized. We then used the cannulated drill to drill over our inserted guidepins to perfo rate the lateral cortex. We then proceeded to insert the selected cannulated screws. Fluoroscopic v iews were then utilized for us to fine tune the depth of penetration of our cannulated screws. At th e end, we obtained C-arm permanent films, both AP and lateral projections again showing satisfactory placement of our hardware and good fracture reduction as well. We then irrigated the wound out thoro ughly with saline, then closed the wound in layers using one [id number] stitch of 2-0 Vicryl to close the fascia aditya layer, followed by several buried simple stitches of 3-0 Vicryl to approximate the subcutaneous tissues. We then applied skin caitlin. There was some bleeding that was noted as w e were finishing up our case and we did apply some pressure on the thigh to obtain hemostasis prior t o completing our wound closure. At the end, we then applied a soft dressing to the wound and applied a pressure dressing over the thigh. The patient was then transferred off the fracture table onto [facility] bed and taken to the recovery room in satisfactory condition. ESTIMATED BLOOD LOSS: 150 mL. REPLACEMENT: 700 mL of crystalloid. INTRAOPERATIVE COMPLICATIONS: None. PLAN: The patient may be weightbearing as tolerated on this extremity. TD: 10/13/2020 12:26
[2020-10-13] MEDS: ASPIRIN 325 MG TABLET PO SCH (16:44)
[2020-10-13] MEDS ORDERED: SODIUM CHLORIDE FLUSH 0.9% 10 ML SYRINGE IVP SCH (17:00)
--- NOTE | 2020-10-13 17:10 | PROVIDER PROGRESS NOTE ---
Subjective - Prog Note Date Prog Note Date: 10/13/20 Prog Note Time: 17:09 - Subjective Pt reports feeling: Improved Objective - Vital Signs/Intake & Output Vital Signs: Vital Signs x48h Temp Pulse Pulse Pulse Pulse Pulse Resp 10/13/20 16:38 103 H 10/13/20 15:30 36.7 C 119 H 20 10/13/20 14:40 129 H 113 H 89 10/13/20 14:33 36.6 C 80 16 10/13/20 13:30 36.4 C L 72 18 10/13/20 13:00 36.3 C L 85 16 10/13/20 12:30 36.5 C 78 15 10/13/20 12:20 36.7 C 89 15 10/13/20 12:15 36.7 C 88 20 10/13/20 12:13 36.5 C 65 14 10/13/20 12:07 36.5 C 64 15 BP BP BP BP BP BP Pulse Ox 10/13/20 16:38 103/68 10/13/20 15:30 99 10/13/20 14:40 104/71 109/52 L 125/84 H 10/13/20 14:33 113/82 H 100 10/13/20 13:30 109/71 100 10/13/20 13:00 103/76 96 10/13/20 12:30 111/74 100 10/13/20 12:20 117/84 H 100 10/13/20 12:15 114/72 100 10/13/20 12:13 116/68 100 10/13/20 12:07 120/72 100 Intake & Output: Intake & Output 10/10/20 10/11/20 10/12/20 10/13/20 23:59 23:59 23:59 23:59 Intake Total 270 120 Output Total 1050 875 Balance -264 -042 - Lab Results Fish Bones: 10/13/20 05:15 10/13/20 05:15 Other Labs: Lab Results x24hrs 10/13/20 10/13/20 Range/Units 05:15 05:15 WBC 10.7 (4.8-10.8) x10^3/uL RBC 4.99 (4.70-6.10) 10^6/uL Hgb 15.8 (14.0-18.0) g/dL Hct 45.6 (42.0-52.0) % MCV 91.4 (80.0-94.0) fL MCH 31.7 H (27.0-31.0) pg MCHC 34.6 (32.0-36.0) g/dL RDW 13.5 (12.0-15.0) % Plt Count 180 (130-450) 10^3/uL MPV 11.2 (7.4-11.4) fL Neut # (Auto) 7.9 H (1.5-6.6) 10^3/uL Lymph # (Auto) 1.4 L (1.5-3.5) 10^3/uL [place] # (Auto) 1.4 H (0.0-1.0) 10^3/uL Eos # (Auto) 0.0 (0.0-0.7) 10^3/uL Baso # (Auto) 0.0 (0.0-0.1) 10^3/uL Absolute Nucleated RBC 0.00 x10^3/uL Nucleated RBC % 0.0 /100WBC Sodium 137 (135-145) mmol/L Potassium 3.6 (3.5-5.0) mmol/L Chloride 103 (101-111) mmol/L Carbon Dioxide 23 (21-32) mmol/L Anion Gap 11.0 (6-13) BUN 13 (6-20) mg/dL Creatinine 1.0 (0.6-1.2) mg/dL Estimated GFR (MDRD) 76 L (>89) Glucose 106 H (70-100) mg/dL Calcium 8.7 (8.5-10.3) mg/dL Phosphorus 2.9 (2.5-4.6) mg/dL Magnesium 2.1 (1.7-2.8) mg/dL - Other Results/Comments Other Results/Comments: EXAM: N/V ok distally. Moves toes well. Sensation intact. Good cap filling. Up on floorr with PT Assessment/Plan - Problem List (1) Fracture of femoral neck, left Impression: Satis post op Qualifiers: Encounter type: initial encounter Fracture type: closed Qualified Code(s): S72.002A - Fracture of unspecified part of neck of left femur, initial encounter for closed fracture
[2020-10-13] MEDS: IBUPROFEN 400 MG TABLET PO PRN (17:12)
[2020-10-13] MEDS ORDERED: MIDAZOLAM 2 MG/2 ML VIAL IVP ONE (18:36)
[2020-10-13] MEDS ORDERED: DEXAMETHASONE 4 MG/ML VIAL IVP ONE (18:36)
[2020-10-13] MEDS ORDERED: fentaNYL 100 MCG/2 ML VIAL IVP ONE (18:36)
[2020-10-13] MEDS ORDERED: ONDANSETRON 4 MG/2 ML VIAL IVP ONE (18:36)
[2020-10-13] MEDS ORDERED: KETOROLAC 30 MG/ML VIAL IVP ONE (18:36)
[2020-10-13] MEDS ORDERED: PROPOFOL 200 MG/20 ML VIAL IVP ONE (18:36)
[2020-10-13] MEDS ORDERED: ePHEDrine 50 MG/ML VIAL IVP ONE (18:36)
[2020-10-13] MEDS ORDERED: LIDOCAINE-MPF 2% 5 ML VIAL IM ONE (18:36)
[2020-10-13] MEDS: ceFAZolin 2 GM in SODIUM CHLORIDE 0.9% 100ML 100 ML IV SCH (19:30)
[2020-10-13] MEDS: ACETAMINOPHEN 325 MG TABLET PO PRN (22:06)
[2020-10-14] MEDS: oxyCODONE 5 MG TABLET PO PRN (00:17)
[2020-10-14] MEDS: SODIUM CHLORIDE FLUSH 0.9% 10 ML SYRINGE IVP SCH ×3 (00:17→17:36)
[2020-10-14] MEDS: ceFAZolin 2 GM in SODIUM CHLORIDE 0.9% 100ML 100 ML IV SCH (02:59)
[2020-10-14 05:50] LABS: BASOPHILS % (AUTO) 0.3 %; EOSINOPHILS % (AUTO) 0.1 %; HGB - HEMOGLOBIN 11.1 g/dL (14.0-18.0); LYMPHOCYTES # (AUTO) 1.8 10^3/uL (1.5-3.5); LYMPHOCYTES % (AUTO) 15.1 %; MEAN CORPUSCULAR HEMOGLOBIN 31.5 pg (27.0-31.0); MEAN CORPUSCULAR HGB CONC 33.8 g/dL (32.0-36.0); MEAN CORPUSCULAR VOLUME 93.2 fL (80.0-94.0); MONOCYTES # (AUTO) 1.3 10^3/uL (0.0-1.0); NEUTROPHILS # (AUTO) 8.6 10^3/uL (1.5-6.6); PLT - PLATELET COUNT 144 10^3/uL (130-450); RED BLOOD COUNT 3.52 10^6/uL (4.70-6.10); RED CELL DISTRIBUTION WIDTH 13.6 % (12.0-15.0); WHITE BLOOD COUNT 11.8 x10^3/uL (4.8-10.8)
[2020-10-14 06:02] LABS: CALCIUM 7.9 mg/dL (8.5-10.3); CREATININE 1.2 mg/dL (0.6-1.2); PHOSPHORUS 2.8 mg/dL (2.5-4.6)
--- NOTE | 2020-10-14 07:31 | PROVIDER PROGRESS NOTE ---
Subjective - Prog Note Date Prog Note Date: 10/14/20 - Subjective Subjective: Reports doing quite well. He states his pain is well controlled. He does have some swelling in the left thigh. He was able to get out of bed yesterday evening for a brief period of time. He is eager to work with physical therapy. Current Medications - Current Medications Current Medications: Active Medications Acetaminophen (Tylenol) 650 mg PO Q4HR PRN PRN Reason: Pain 1 to 4 Last Admin: 10/13/20 22:06 Dose: 650 mg Documented by: Acetaminophen (Tylenol) 650 - 975 mg PO Q4HR PRN PRN Reason: PAIN Aspirin (Doron) 325 mg PO BIDWM [facility] [place] Last Admin: 10/13/20 16:44 Dose: 325 mg Documented by: Docusate Sodium (Colace 100mg Capsule) 100 mg PO BID PRN PRN Reason: Constipation Ibuprofen (Motrin) 400 mg PO Q6HR PRN PRN Reason: PAIN Last Admin: 10/13/20 17:12 Dose: 400 mg Documented by: Ketorolac Tromethamine (Toradol Inj (30mg)) 30 mg IVP Q6HR PRN PRN Reason: PAIN Stop: 10/18/20 14:33 Morphine Sulfate (Morphine (Carpuject)) 2 mg IVP Q2HR PRN PRN Reason: Pain 8 to 10 Last Admin: 10/13/20 08:39 Dose: 2 mg Documented by: Ondansetron HCl (Zofran Inj) 4 mg IVP Q6HR PRN PRN Reason: Nausea / Vomiting Ondansetron HCl (Zofran Odt) 4 mg TL Q6HR PRN PRN Reason: Nausea / Vomiting Oxycodone HCl (Roxicodone) 5 mg PO Q4HR PRN PRN Reason: Pain 5 to 7 Last Admin: 10/14/20 00:17 Dose: 5 mg Documented by: Senna (Senokot) 17.2 mg PO Q12H PRN PRN Reason: Constipation Sodium Chloride (Normal Saline Flush 0.9%) 10 ml IVP PRN PRN PRN Reason: NEEDED PER PROVIDER ORDERS Last Admin: 10/12/20 22:31 Dose: 10 ml Documented by: Sodium Chloride (Normal Saline Flush 0.9%) 10 ml IVP 0100,0900,1700 [facility] [place] Last Admin: 10/14/20 00:17 Dose: 10 ml Documented by: No Known Home Medications 10/13/20 Objective - Vital Signs/Intake & Output Reviewed Vital Signs: Yes Vital Signs: Vital Signs x48h Temp Pulse Resp BP BP Pulse Ox 10/14/20 04:45 36.5 C 66 16 103/63 98 10/14/20 00:08 36.1 C L 74 18 103/64 96 Intake & Output: Intake & Output 10/11/20 10/12/20 10/13/20 10/14/20 23:59 23:59 23:59 23:59 Intake Total 270 1720 525 Output Total 1050 1500 625 Balance -780 220 -100 - Objective General Appearance: positive: No acute distress, Alert Eyes Bilateral: positive: Normal inspection, Conjunctivae nml ENT: positive: ENT inspection nml Neck: positive: Nml inspection Respiratory: positive: No respiratory distress. negative: Wheezes, Rales Cardiovascular: positive: Regular rate & rhythm. negative: Tachycardia Abdomen: positive: Non-tender, No distention. negative: Tenderness Skin: positive: Warm, Dry, Other (Dressing is in place over the left thigh. There is edema noted. No tenderness to palpation.) Extremities: positive: No pedal edema Neurologic/Psychiatric: positive: Oriented x3, Sensation nml - Lab Results Fish Bones: 10/14/20 05:40 10/14/20 05:40 Other Labs: Lab Results x24hrs 10/14/20 10/14/20 Range/Units 05:40 05:40 WBC 11.8 H (4.8-10.8) x10^3/uL RBC 3.52 L (4.70-6.10) 10^6/uL Hgb 11.1 L (14.0-18.0) g/dL Hct 32.8 L (42.0-52.0) % MCV 93.2 (80.0-94.0) fL MCH 31.5 H (27.0-31.0) pg MCHC 33.8 (32.0-36.0) g/dL RDW 13.6 (12.0-15.0) % Plt Count 144 (130-450) 10^3/uL MPV 11.0 (7.4-11.4) fL Neut # (Auto) 8.6 H (1.5-6.6) 10^3/uL Lymph # (Auto) 1.8 (1.5-3.5) 10^3/uL Woods # (Auto) 1.3 H (0.0-1.0) 10^3/uL Eos # (Auto) 0.0 (0.0-0.7) 10^3/uL Baso # (Auto) 0.0 (0.0-0.1) 10^3/uL Absolute Nucleated RBC 0.00 x10^3/uL Nucleated RBC % 0.0 /100WBC Sodium 136 (135-145) mmol/L Potassium 3.9 (3.5-5.0) mmol/L Chloride 102 (101-111) mmol/L Carbon Dioxide 23 (21-32) mmol/L Anion Gap 11.0 (6-13) BUN 20 (6-20) mg/dL Creatinine 1.2 (0.6-1.2) mg/dL Estimated GFR (MDRD) 62 L (>89) Glucose 125 H (70-100) mg/dL Calcium 7.9 L (8.5-10.3) mg/dL Phosphorus 2.8 (2.5-4.6) mg/dL Magnesium 2.0 (1.7-2.8) mg/dL ABX Reporting Has patient been on IV antibiotics over the past 48 hours?: No Assessment/Plan - Problem List (1) Fracture of femoral neck, left Impression: He is postop day 1. He is doing quite well although is likely due to the effects of the block still. Continue pain control with oral oxycodone, morphine IV as needed. We will use Toradol and ibuprofen as well. Aspirin 325 mg twice daily for DVT prophylaxis. PT and OT will evaluate the patient today. Appreciate social work input regarding disposition. Qualifiers: Encounter type: initial encounter Fracture type: closed Qualified Code(s): S72.002A - Fracture of unspecified part of neck of left femur, initial encounter for closed fracture (2) Rheumatoid arthritis Impression: Stable.
--- NOTE | 2020-10-14 09:20 | PROVIDER PROGRESS NOTE ---
Subjective - Prog Note Date Prog Note Date: 10/14/20 Prog Note Time: 09:18 - Subjective Pt reports feeling: Improved Objective - Vital Signs/Intake & Output Vital Signs: Vital Signs x48h Temp Pulse Resp BP Pulse Ox 10/14/20 07:41 36.7 C 65 16 99/58 L 99 10/14/20 04:45 36.5 C 66 16 103/63 98 Intake & Output: Intake & Output 10/11/20 10/12/20 10/13/20 10/14/20 23:59 23:59 23:59 23:59 Intake Total 270 1720 1245 Output Total 1050 1500 625 Balance -780 220 620 - Lab Results Fish Bones: 10/14/20 05:40 10/14/20 05:40 Other Labs: Lab Results x24hrs 10/14/20 10/14/20 Range/Units 05:40 05:40 WBC 11.8 H (4.8-10.8) x10^3/uL RBC 3.52 L (4.70-6.10) 10^6/uL Hgb 11.1 L (14.0-18.0) g/dL Hct 32.8 L (42.0-52.0) % MCV 93.2 (80.0-94.0) fL MCH 31.5 H (27.0-31.0) pg MCHC 33.8 (32.0-36.0) g/dL RDW 13.6 (12.0-15.0) % Plt Count 144 (130-450) 10^3/uL MPV 11.0 (7.4-11.4) fL Neut # (Auto) 8.6 H (1.5-6.6) 10^3/uL Lymph # (Auto) 1.8 (1.5-3.5) 10^3/uL Williams # (Auto) 1.3 H (0.0-1.0) 10^3/uL Eos # (Auto) 0.0 (0.0-0.7) 10^3/uL Baso # (Auto) 0.0 (0.0-0.1) 10^3/uL Absolute Nucleated RBC 0.00 x10^3/uL Nucleated RBC % 0.0 /100WBC Sodium 136 (135-145) mmol/L Potassium 3.9 (3.5-5.0) mmol/L Chloride 102 (101-111) mmol/L Carbon Dioxide 23 (21-32) mmol/L Anion Gap 11.0 (6-13) BUN 20 (6-20) mg/dL Creatinine 1.2 (0.6-1.2) mg/dL Estimated GFR (MDRD) 62 L (>89) Glucose 125 H (70-100) mg/dL Calcium 7.9 L (8.5-10.3) mg/dL Phosphorus 2.8 (2.5-4.6) mg/dL Magnesium 2.0 (1.7-2.8) mg/dL - Other Results/Comments Other Results/Comments: EXAM: Mild tenderness over left hip. Mild swelling. Dressing intact. Moves toes well. Sensation intact. Good cap filling. Up to bathroom - WBAT on left with walker with min assistance Assessment/Plan - Problem List (1) Fracture of femoral neck, left Impression: Satis post op PLAN: Walker ambulate - WBAT on left. Dressing changes as needed. Aspirin x 2 weeks. RTC in 2 weeks for caitlin out and new XR. Qualifiers: Encounter type: initial encounter Fracture type: closed Qualified Code(s): S72.002A - Fracture of unspecified part of neck of left femur, initial encounter for closed fracture
[2020-10-14] MEDS: KETOROLAC 30 MG/ML VIAL IVP PRN ×2 (12:27→18:33)
[2020-10-14] MEDS: ASPIRIN 325 MG TABLET PO SCH (17:35)
[2020-10-14] MEDS: SODIUM CHLORIDE FLUSH 0.9% 10 ML SYRINGE IVP PRN (18:33)
[2020-10-15] MEDS: SODIUM CHLORIDE FLUSH 0.9% 10 ML SYRINGE IVP SCH ×2 (00:37→10:05)
[2020-10-15] MEDS: KETOROLAC 30 MG/ML VIAL IVP PRN (00:37)
[2020-10-15 06:01] LABS: BASOPHILS # (AUTO) 0.1 10^3/uL (0.0-0.1); BASOPHILS % (AUTO) 0.6 %; EOSINOPHILS # (AUTO) 0.3 10^3/uL (0.0-0.7); EOSINOPHILS % (AUTO) 3.7 %; HGB - HEMOGLOBIN 10.2 g/dL (14.0-18.0); LYMPHOCYTES % (AUTO) 23.1 %; MEAN CORPUSCULAR HEMOGLOBIN 32.9 pg (27.0-31.0); MEAN CORPUSCULAR HGB CONC 34.6 g/dL (32.0-36.0); MEAN CORPUSCULAR VOLUME 95.2 fL (80.0-94.0); MEAN PLATELET VOLUME 11.4 fL (7.4-11.4); NEUTROPHILS # (AUTO) 5.2 10^3/uL (1.5-6.6); NEUTROPHILS % (AUTO) 60.3 %; PLT - PLATELET COUNT 149 10^3/uL (130-450); RED CELL DISTRIBUTION WIDTH 13.8 % (12.0-15.0); WHITE BLOOD COUNT 8.7 x10^3/uL (4.8-10.8)
[2020-10-15 06:13] LABS: CREATININE 1.2 mg/dL (0.6-1.2); MAGNESIUM 2.3 mg/dL (1.7-2.8); PHOSPHORUS 2.3 mg/dL (2.5-4.6)
[2020-10-15] MEDS: IBUPROFEN 400 MG TABLET PO PRN (06:36)
[2020-10-15] MEDS ORDERED: NEUTRA-PHOS 250 MG TABLET PO SCH (08:00)
[2020-10-15] MEDS: ASPIRIN 325 MG TABLET PO SCH (10:04)
--- NOTE | 2020-10-15 10:18 | Discharge Plan ---
Discharge Plan Problem Reviewed?: Yes Disposition: Home, Self Care Condition: Good Prescriptions: oxyCODONE [Roxicodone] 5 mg PO Q4HR PRN #30 tablet PRN Reason: Pain 5 to 7 Ibuprofen [Motrin] 400 mg PO Q6HR PRN #30 tablet PRN Reason: Pain Aspirin [Doron] 325 mg PO BIDWM #30 tablet Docusate Sodium 100Mg Capsule [Colace 100Mg Capsule] 100 mg PO BID PRN #14 capsule PRN Reason: Constipation Diet: Regular Activity Restrictions: Wt Bearing as Tolerated Assistance Devices: Walker Instruction Topics: Oxycodone tablets or capsules, Internal Fixation Fxd Femur Dc, Fx Femur ORIF About Health Concerns: You were seen in the hospital because of a left hip fracture after he fell. This was repaired by the orthopedic surgeon. You have done well with physical therapy and you are now stable for discharge home. Plan of Treatment: Please take aspirin 325 mg twice daily for at least 2 weeks until you follow-up with the orthopedic surgeon. This is to prevent blood clots in your legs. You were prescribed oxycodone and ibuprofen to take as needed for pain. Please make sure to take the aspirin and ibuprofen with food to prevent an upset stomach and inflammation of your stomach lining. It is recommended that you follow-up with your primary care provider in the future as you will benefit from a DEXA scan to measure your bone density as you may need medication to help if it is found that you have osteoporosis. Assessment: The patient expressed understanding of the treatment plan. Additional Instructions or Follow Up instructions: Follow-up with orthopedic surgery in 2 weeks. Please contact them to make an appointment. The number is [phone]. No Smoking: If you smoke, Please STOP! Call for help.
--- NOTE | 2020-10-15 10:19 | PROVIDER PROGRESS NOTE ---
Subjective - Prog Note Date Prog Note Date: 10/15/20 Prog Note Time: 10:17 - Subjective Pt reports feeling: Improved Objective - Vital Signs/Intake & Output Vital Signs: Vital Signs x48h Temp Pulse Resp BP Pulse Ox 10/15/20 07:57 36.6 C 66 16 96/53 L 98 10/15/20 05:00 36.8 C 65 16 97/57 L 98 Intake & Output: Intake & Output 10/12/20 10/13/20 10/14/20 10/15/20 23:59 23:59 23:59 23:59 Intake Total 270 1720 2515 770 Output Total 1050 1500 625 Balance -475 128 5090 770 - Lab Results Fish Bones: 10/15/20 05:40 10/15/20 05:40 Other Labs: Lab Results x24hrs 10/15/20 10/15/20 Range/Units 05:40 05:40 WBC 8.7 (4.8-10.8) x10^3/uL RBC 3.10 L (4.70-6.10) 10^6/uL Hgb 10.2 L (14.0-18.0) g/dL Hct 29.5 L (42.0-52.0) % MCV 95.2 H (80.0-94.0) fL MCH 32.9 H (27.0-31.0) pg MCHC 34.6 (32.0-36.0) g/dL RDW 13.8 (12.0-15.0) % Plt Count 149 (130-450) 10^3/uL MPV 11.4 (7.4-11.4) fL Neut # (Auto) 5.2 (1.5-6.6) 10^3/uL Lymph # (Auto) 2.0 (1.5-3.5) 10^3/uL Otero # (Auto) 1.0 (0.0-1.0) 10^3/uL Eos # (Auto) 0.3 (0.0-0.7) 10^3/uL Baso # (Auto) 0.1 (0.0-0.1) 10^3/uL Absolute Nucleated RBC 0.00 x10^3/uL Nucleated RBC % 0.0 /100WBC Sodium 139 (135-145) mmol/L Potassium 3.8 (3.5-5.0) mmol/L Chloride 104 (101-111) mmol/L Carbon Dioxide 26 (21-32) mmol/L Anion Gap 9.0 (6-13) BUN 19 (6-20) mg/dL Creatinine 1.2 (0.6-1.2) mg/dL Estimated GFR (MDRD) 62 L (>89) Glucose 99 (70-100) mg/dL Calcium 8.0 L (8.5-10.3) mg/dL Phosphorus 2.3 L (2.5-4.6) mg/dL Magnesium 2.3 (1.7-2.8) mg/dL - Other Results/Comments Other Results/Comments: EXAM: mild thigh swelling. Good knee and hip ROM without problem. Up ambulating - WBAT on left with walker on floor. Assessment/Plan - Problem List (1) Fracture of femoral neck, left Impression: Satis post op PLAN: Walker ambulate - WBAT on left. Aspirin x 2 weeks. RTC in 2 weeks for XR and caitlin out. Qualifiers: Encounter type: initial encounter Fracture type: closed Qualified Code(s): S72.002A - Fracture of unspecified part of neck of left femur, initial encounter for closed fracture
--- NOTE | 2020-10-15 10:21 | DISCHARGE SUMMARY ---
"Discharge Summary Admit Date: 10/12/20 Discharge Date: 10/15/20 Discharging Provider: Gordo Ceja Primary Care Provider: Danielle PCP Code Status: Attempt Resuscitation Condition at Discharge: Good Discharge Disposition: 01 Home, Self Care - DIAGNOSES Admission Diagnoses: Fracture of femoral neck, left Preop examination Leukocytosis Rheumatoid arthritis Discharge Diagnoses with Status of Each Condition: Fracture of femoral neck, left - resolved. Rheumatoid arthritis - stable. - HPI History of Present Illness: This is a pleasant 59-year-old male with a past medical history significant for motor arthritis who presents today after falling at home and complaining of left hip pain. He states he was making Thanksgiving dinner when he attempted to put on some entertainment by sliding across the kitchen floor when he slipped and fell up in the air and on his left hip. He heard a pop and thought his hip was dislocated. He complains of pain in the left groin. No numbness in his lower extremities. He states he is relatively healthy to his knowledge. He has a history of rheumatoid arthritis but does not take any medications for it. He has not seen a physician in many years. Reports no prior history of diabetes, hypertension, heart disease, arrhythmias. He states he is normally quite active and is able to hike and climb a flight of stairs without chest pain. He reports a family history of atrial fibrillation and a murmur in his father. He did smoke a pack for 40 years but quit over 5 years ago. He will have occasional alcoholic beverage. Will smoke occasional marijuana. He has never had surgery before. He denies any fevers, chills, chest pain, dyspnea, cough, dysuria, urgency. In the emergency department, he underwent imaging of the left hip which was concerning for a left femoral neck fracture. He was evaluated by orthopedic surgery and plan is for OR tomorrow with orthopedics. Given the above findings, medicine was consulted for admission. I did discuss goals of care with the patient and he would like to be a full code. - CONSULTS | PROCEDURES Consultations: Orthopedic Surgery, PT/OT Procedures: He underwent closed reduction multiple cannulated screw fixation of left hip fracture on October 13 with orthopedic surgery. - HOSPITAL COURSE Hospital Course: He was admitted for a left hip fracture and went to the OR the following day with orthopedic surgery for close reduction multiple cannulated screw fixation of left hip fracture. He did well postoperatively with physical therapy and pain control. He was discharged on postop day 2 to home with a walker. He was provided with 30 tablets of oxycodone to take as needed for pain. He was asked to take aspirin 325 mg twice daily for DVT prophylaxis. He will need follow-up with a primary care provider for a DEXA scan on outpatient basis. He was not discharged on Fosamax as orthopedic surgery felt his bone did not appear osteopenic or osteoporotic while in the OR. He was provided with a list of primary care providers but has not made decision regarding which 1 to see until he obtains health insurance. - ALLERGIES Allergies/Adverse Reactions: Allergies Allergy/AdvReac Type Severity Reaction Status Date / Time No Known Drug Allergies Allergy Verified 10/12/20 13:48 - MEDICATIONS Home Medications: Ambulatory Orders Medication Instructions Recorded Confirmed Aspirin [Doron] 325 mg PO BIDWM #30 tablet 10/15/20 Docusate Sodium 100Mg Capsule 100 mg PO BID PRN #14 capsule 10/15/20 [Colace 100Mg Capsule] Ibuprofen [Motrin] 400 mg PO Q6HR PRN #30 tablet 10/15/20 oxyCODONE [Roxicodone] 5 mg PO Q4HR PRN #30 tablet 10/15/20 - PHYSICAL EXAM AT DISCHARGE General Appearance: positive: No acute distress, Alert Eyes Bilateral: positive: Normal inspection, Conjunctivae nml ENT: positive: ENT inspection nml Neck: positive: Nml inspection Respiratory: positive: No respiratory distress. negative: Wheezes, Rales Cardiovascular: positive: Regular rate & rhythm, No murmur. negative: Tachycardia Abdomen: positive: Non-tender, No distention. negative: Tenderness Skin: positive: Warm, Dry Extremities: positive: No pedal edema, Other (Dressing is in place over the lateral aspect of the left hip. No surrounding erythema or tenderness. The left thigh is edematous but he has good range of motion. Neurovascularly intact distally) Neurologic/Psychiatric: positive: Oriented x3, Sensation nml. negative: Disoriented to person, Disoriented to place, Disoriented to time Physical Exam Other/Comments: Vital Signs - 24 hr 10/14/20 10/14/20 10/15/20 15:46 20:02 00:45 Temperature 36.7 C 36.7 C 36.8 C Heart Rate [ 85 74 70 Brachial] Respiratory 20 20 16 Rate Blood Pressure 114/66 [Left Brachial artery] Blood Pressure 117/71 100/56 L [Right Brachial artery] O2 Saturation 100 97 96 10/15/20 10/15/20 10/15/20 05:00 07:57 11:23 Temperature 36.8 C 36.6 C 36.9 C Heart Rate [ 65 66 60 Brachial] Respiratory 16 16 16 Rate Blood Pressure 97/57 L 96/53 L 132/60 H [Left Brachial artery] Blood Pressure [Right Brachial artery] O2 Saturation 98 98 98 Oxygen O2 Source Room air - LABS Result Diagrams: 10/15/20 05:40 10/15/20 05:40 - DIAGNOSTIC IMAGING Diagnostic Imaging Results: Final report reviewed - FOLLOW UP Follow Up: He was asked to follow-up with orthopedic surgery in 2 weeks and he was provided with a number for the clinic. He was also asked to follow-up with a primary care provider. - TIME SPENT Time Spent in Discharge (Minutes): 32"
[2020-10-15 11:24] VITALS: BP 132/60
== END 2020-10-15 12:44 | disposition home or self-care (01) | DRG 482 ==
LOC: ED 13:45 → MS2 15:50
PROVIDERS: ADMIT Internal Medicine; ATTEND Internal Medicine
PROC: 0QS704Z Reposition Left Upper Femur with Internal Fixation Device, Open Approach (ICD-10-PCS; principal; 2020-10-12)
DX: S72.012A Unspecified intracapsular fracture of left femur, initial encounter for closed fracture (principal); W01.0XXA Fall on same level from slipping, tripping and stumbling without subsequent striking against object, initial encounter; M06.9 Rheumatoid arthritis, unspecified; Y93.G3 Activity, cooking and baking; Y92.010 Kitchen of single-family (private) house as the place of occurrence of the external cause; Z87.891 Personal history of nicotine dependence
CPT/HCPCS: 0202U; 36415; 71045; 73502; 73700; 80048; 80053; 83690; 83735; 84100; 85025; 93005; 97116; 97161; 97530; 99284; 99285; A9270; J1170; J1650; J2795; J7120

== ENCOUNTER 2020-11-06 09:45 | Outpatient (CLI) | payer MEDICAID ==
--- NOTE | 2020-11-06 15:42 | XRAY Report ---
PROCEDURE: Lumbar Spine 2 View INDICATIONS: POST OPERATIVE CARE TECHNIQUE: 3 views of the lumbar spine were acquired. COMPARISON: None. FINDINGS: Bones: 5 [id number] vertebrae are present. There is normal bony alignment. No vertebral body compression fractures. No suspicious bony lesions. Soft tissues: Overlying bowel gas pattern is normal. No suspicious soft tissue calcifications. IMPRESSION: Moderate degenerative disc disease along the lumbosacral spine. Moderate facet osteoarth ritis that becomes progressively more prominent from L3 through S1. Spinal and foraminal stenosis at L4-5 and L5-S1 may be present given the degree of hyperostosis noted. Reviewed by: Fadi Sims MD on 11/06/2020 3:40 PM PST Approved by: Fadi Sims MD on 11/06/2020 3:40 PM PST Station ID: [id number]
--- NOTE | 2020-11-06 17:54 | XRAY Report ---
PROCEDURE: Hip w/Pelvis 1V LT INDICATIONS: POST OPERATIVE CARE TECHNIQUE: AP pelvis with lateral view(s) of the bilateral hip(s). COMPARISON: 10/12/2020. FINDINGS: Bones: Postsurgical changes compatible with ORIF of subcapital left femoral neck fracture. There is n ear-anatomic alignment of the left femoral neck fracture following placement of 3 orthopedic screws. Soft tissues: The visualized bowel gas pattern is normal. No suspicious soft tissue calcifications. IMPRESSION: Near-anatomic alignment following ORIF of subcapital left femoral neck fracture.. Reviewed by: Phuong Suh MD, PhD on 11/06/2020 5:52 PM PST Approved by: Phuong Suh MD, PhD on 11/06/2020 5:52 PM PST Station ID: [id number]
== END 2020-11-06 23:59 | disposition home or self-care (01) ==
LOC: DI.N 09:45
PROVIDERS: ATTEND Physician Assistant
DX: M47.816 Spondylosis without myelopathy or radiculopathy, lumbar region (principal); M47.817 Spondylosis without myelopathy or radiculopathy, lumbosacral region; M51.37 Other intervertebral disc degeneration, lumbosacral region; M48.061 Spinal stenosis, lumbar region without neurogenic claudication; M48.07 Spinal stenosis, lumbosacral region; S72.012D Unspecified intracapsular fracture of left femur, subsequent encounter for closed fracture with routine healing

== ENCOUNTER 2021-04-23 14:28 | Outpatient (CLI) | payer MEDICAID ==
--- NOTE | 2021-04-23 15:38 | XRAY Report ---
PROCEDURE: Hip w/Pelvis 2-3V LT INDICATIONS: DISPLACED FRACTURE OF LEFT FEMUR TECHNIQUE: AP pelvis with lateral view(s) of the left hip(s). COMPARISON: Plain films dated 11/06/2020 FINDINGS: Bones: No fractures or dislocations. Pelvic ring appears intact. No suspicious bony lesions. ORIF of the left hip has been performed, as before. Mild joint space narrowing and periarticular osteophy te formation at the bilateral hip joints. Soft tissues: The visualized bowel gas pattern is normal. No suspicious soft tissue calcifications. IMPRESSION: 1. Stable postsurgical sequelae. 2. Bilateral hip osteoarthritis. 3. No fracture. Reviewed by: Georgette Stockton MD on 04/23/2021 3:37 PM PDT Approved by: Georgette Stockton MD on 04/23/2021 3:37 PM PDT Station ID: [id number]
== END 2021-04-23 23:59 | disposition home or self-care (01) ==
LOC: DI.N 14:28
PROVIDERS: ATTEND Physician Assistant
DX: S72.142D Displaced intertrochanteric fracture of left femur, subsequent encounter for closed fracture with routine healing (principal); M16.0 Bilateral primary osteoarthritis of hip